=== PATIENT | male | born 1990 | race Caucasian/White ===

== ENCOUNTER 2023-03-21 21:08 | Outpatient (REF) | payer OTHER, SELFPAY ==
[2023-03-23 13:46] LABS: Chlamydia Result Negative (Negative); GC Result Negative (Negative)
== END 2023-03-21 21:09 | disposition home or self-care (01) ==
LOC: LBN 21:08
PROVIDERS: Visit Provider Nurse Practitioner Family
DX: R10.2 Pelvic and perineal pain (principal)
CPT/HCPCS: 87491; 87591

== ENCOUNTER 2023-06-09 17:23 | Outpatient (REF) | payer OTHER, SELFPAY ==
[2023-06-11 15:08] LABS: Chlamydia Result Negative (Negative); GC Result Negative (Negative)
== END 2023-06-09 17:24 | disposition home or self-care (01) ==
LOC: LBN 17:23
PROVIDERS: PCP Nurse Practitioner Family; Visit Provider Nurse Practitioner Family
DX: Z20.2 Contact with and (suspected) exposure to infections with a predominantly sexual mode of transmission (principal)
CPT/HCPCS: 87491; 87591

== ENCOUNTER 2023-06-11 04:19 | Outpatient (CLI) | payer OTHER, SELFPAY ==
[2023-06-11 14:07] LABS: ALT 37 U/L (16-63); AST 17 U/L (15-37); Albumin 4.9 g/dL (3.4-5.0); Alkaline Phosphatase 57 U/L (46-116); Anion Gap 11.9 mmol/L (3-11); BUN 15 mg/dL (7-18); CO2 26.1 mmol/L (21.0-32.0); Calcium 9.3 mg/dL (8.5-10.1); Calculated LDL 175 mg/dL (<100); Chloride 104 mmol/L (98-107); Cholesterol 242 mg/dL (<200); Estimated GFR 103.19 (mL/min/1.73m2); Glucose 93 mg/dL (74-106); HDL Cholesterol 58 mg/dL (40-60); Potassium 3.8 mmol/L (3.5-5.1); Sodium 142 mmol/L (136-145); Total Protein 8.5 g/dL (6.4-8.2); Triglyceride 46 mg/dL (<150)
[2023-06-11 22:48] LABS: Hepatitis B Surface Ab Negative (See Note)
[2023-06-11 23:03] LABS: Hepatitis B Surface Ag Negative (Negative)
[2023-06-11 23:28] LABS: HIV-1/2 Ag & Ab Screen Negative (Negative)
[2023-06-11 23:33] LABS: Hepatitis C Ab w Rflx HCV PCR Negative (Negative)
[2023-06-12 11:13] LABS: Syphilis Serology (RPR) Negative (Negative)
== END 2023-06-11 04:20 | disposition home or self-care (01) ==
PROVIDERS: PCP Nurse Practitioner Family; Visit Provider Nurse Practitioner Family
DX: Z13.220 Encounter for screening for lipoid disorders (principal); Z20.2 Contact with and (suspected) exposure to infections with a predominantly sexual mode of transmission; Z11.59 Encounter for screening for other viral diseases; Z11.4 Encounter for screening for human immunodeficiency virus [HIV]
CPT/HCPCS: 36415; 80053; 80061; 86706; 86803; 87340; 87389; 86592